=== PATIENT | male | born 1965 | race Caucasian/White ===

== ENCOUNTER 2025-05-30 09:11 | Emergency (ER) | payer OTHER ==
[~2025-05-30] VITALS: Ht 177.8 cm; Wt 86.4 kg
[2025-05-30] MEDS: IBUPROFEN 600 MG TABLET PO ONE (13:05)
[2025-05-30 13:53] VITALS: TEMP 97.3
[2025-05-30] MEDS ORDERED: CYCL-448 PO (13:55)
[2025-05-30] MEDS ORDERED: IBUP-1492 PO (13:55)
[2025-05-30 14:15] VITALS: BP 137/78; PULSE 64; RESP 16; O2SAT 100
== END 2025-05-30 15:12 | disposition home or self-care (01) ==
LOC: EMS 12:13
DX: M25.511 Pain in right shoulder (principal); V29.99XA Rider (driver) (passenger) of other motorcycle injured in unspecified traffic accident, initial encounter; Y93.89 Activity, other specified; Y92.411 Interstate highway as the place of occurrence of the external cause; Y99.8 Other external cause status
CPT/HCPCS: 71045; 99284